=== PATIENT | male | born 1980 | race Caucasian/White ===

== ENCOUNTER 2016-11-05 21:33 | Emergency (ER) | payer MEDICAID ==
[2016-11-06 00:22] LABS: BASOPHIL % 0.4 % (0-2); PLATELET COUNT 284 x10^3mcL (130-400); RED CELL DISTRIBUTION WIDTH 13.2 % (11.5-14.5)
[2016-11-06 00:38] LABS: CALCIUM 8.8 mg/dL (8.5-10.1); CARBON DIOXIDE 25.3 mmol/L (21-32); CHLORIDE SERUM 108 mmol/L (98-107); GFR1 > 60 mL/min; GLUCOSE SERUM 89 mg/dL (74-106); POTASSIUM SERUM 3.6 mmol/L (3.5-5.1); SODIUM SERUM 142 mmol/L (136-145)
[2016-11-06 00:42] LABS: ALBUMIN 4.1 g/dL (3.4-5.0); ALKALINE PHOSPHATASE 100 U/L (46-116); ALT/SGPT 40 U/L (16-63); AST/SGOT 19 U/L (15-37); BILIRUBIN TOTAL 0.5 mg/dL (0.20-1.00); MAGNESIUM 2.4 mg/dL (1.8-2.4); TOTAL PROTEIN, SERUM 7.9 g/dL (6.4-8.2)
[2016-11-06 01:24] VITALS: BP 111/65
== END 2016-11-06 01:24 | disposition home or self-care (01) ==
LOC: ED 21:33
PROVIDERS: Emergency Medicine
DX: M54.6 Pain in thoracic spine (principal); F99 Mental disorder, not otherwise specified; Z88.0 Allergy status to penicillin
CPT/HCPCS: 36415; J1170; J1885; Q0162

== ENCOUNTER 2017-10-17 13:38 | Emergency (ER) | payer MEDICAID ==
[~2017-10-17] VITALS: Ht 165.1 cm; Wt 78.9 kg
[2017-10-17 13:41] VITALS: Ht 165.1 cm; Wt 78.9 kg
[2017-10-17 15:26] LABS: BASOPHIL % 0.4 % (0-2); PLATELET COUNT 250 x10^3mcL (130-400); RED CELL DISTRIBUTION WIDTH 13.6 % (11.5-14.5)
[2017-10-17 15:30] LABS: CALCIUM 8.3 mg/dL (8.5-10.1); CARBON DIOXIDE 25.8 mmol/L (21-32); CHLORIDE SERUM 108 mmol/L (98-107); CREATININE SERUM 0.8 mg/dL (0.7-1.3); GFR1 > 60 mL/min; GLUCOSE SERUM 98 mg/dL (74-106); POTASSIUM SERUM 3.6 mmol/L (3.5-5.1); SODIUM SERUM 143 mmol/L (136-145)
[2017-10-17 15:45] LABS: ALBUMIN 3.7 g/dL (3.4-5.0); ALKALINE PHOSPHATASE 85 U/L (46-116); ALT/SGPT 36 U/L (16-63); AST/SGOT 20 U/L (15-37); BILIRUBIN TOTAL 0.61 mg/dL (0.20-1.00); LIPASE 150 IU/L (73-393); TOTAL PROTEIN, SERUM 7.2 g/dL (6.4-8.2)
[2017-10-17 15:56] VITALS: BP 111/70
== END 2017-10-17 15:56 | disposition home or self-care (01) ==
LOC: ED 13:38
PROVIDERS: Emergency Medicine
DX: K21.9 Gastro-esophageal reflux disease without esophagitis (principal); Z88.0 Allergy status to penicillin
CPT/HCPCS: 36415; J3490

== ENCOUNTER 2018-02-08 02:50 | Emergency (ER) | payer MEDICAID ==
[~2018-02-08] VITALS: Ht 160 cm; Wt 76.2 kg
[2018-02-08 02:57] VITALS: Ht 160 cm; Wt 76.2 kg
[2018-02-08 04:05] VITALS: BP 110/77
== END 2018-02-08 04:13 | disposition home or self-care (01) ==
LOC: ED 02:50
DX: J02.9 Acute pharyngitis, unspecified (principal); J20.9 Acute bronchitis, unspecified; F17.210 Nicotine dependence, cigarettes, uncomplicated; F41.9 Anxiety disorder, unspecified; Z88.0 Allergy status to penicillin; Z98.890 Other specified postprocedural states
CPT/HCPCS: J1100

== ENCOUNTER 2018-07-13 13:56 | Emergency (ER) | payer MEDICAID ==
[~2018-07-13] VITALS: Ht 160 cm; Wt 78.0 kg
[2018-07-13 14:21] VITALS: Ht 160 cm; Wt 78.0 kg
[2018-07-13 15:53] LABS: BASOPHIL % 0.4 % (0-2); PLATELET COUNT 273 x10^3mcL (130-400); RED CELL DISTRIBUTION WIDTH 13.5 % (11.5-14.5)
[2018-07-13 15:59] LABS: CALCIUM 8.9 mg/dL (8.5-10.1); CARBON DIOXIDE 27.6 mmol/L (21-32); CHLORIDE SERUM 106 mmol/L (98-107); CREATININE SERUM 0.8 mg/dL (0.7-1.3); GFR1 > 60 mL/min; GLUCOSE SERUM 88 mg/dL (74-106); POTASSIUM SERUM 4.2 mmol/L (3.5-5.1); SODIUM SERUM 139 mmol/L (136-145)
[2018-07-13 16:06] LABS: ALBUMIN 3.7 g/dL (3.4-5.0); ALKALINE PHOSPHATASE 103 U/L (46-116); ALT/SGPT 54 U/L (16-63); AST/SGOT 28 U/L (15-37); BILIRUBIN TOTAL 0.6 mg/dL (0.20-1.00); LIPASE 154 IU/L (73-393); TOTAL PROTEIN, SERUM 7.7 g/dL (6.4-8.2)
[2018-07-13 19:20] VITALS: BP 126/75
== END 2018-07-13 19:20 | disposition home or self-care (01) ==
LOC: ED 13:56
PROVIDERS: Emergency Medicine
DX: R10.13 Epigastric pain (principal); R11.10 Vomiting, unspecified; R19.7 Diarrhea, unspecified; R91.8 Other nonspecific abnormal finding of lung field; F41.9 Anxiety disorder, unspecified; Z98.890 Other specified postprocedural states; Z88.0 Allergy status to penicillin
CPT/HCPCS: 36415; Q0092

== ENCOUNTER 2019-03-25 03:22 | Emergency (ER) | payer MEDICAID ==
[~2019-03-25] VITALS: Ht 167.6 cm; Wt 74.4 kg
[2019-03-25 03:42] VITALS: BP 116/72; Ht 167.6 cm; Wt 74.4 kg
== END 2019-03-25 05:25 | disposition home or self-care (01) ==
LOC: ED 03:22
DX: R10.13 Epigastric pain (principal); F41.9 Anxiety disorder, unspecified; Z88.0 Allergy status to penicillin
CPT/HCPCS: J1885

== ENCOUNTER 2019-05-24 22:36 | Emergency (ER) | payer MEDICAID ==
[~2019-05-24] VITALS: Ht 162.6 cm; Wt 81.2 kg
[2019-05-24 23:26] VITALS: Ht 162.6 cm; Wt 81.2 kg
[2019-05-25 02:55] VITALS: BP 108/76
== END 2019-05-25 02:55 | disposition home or self-care (01) ==
LOC: ED 22:36
DX: G44.209 Tension-type headache, unspecified, not intractable (principal); F17.210 Nicotine dependence, cigarettes, uncomplicated; H53.8 Other visual disturbances; Z88.0 Allergy status to penicillin; Z98.890 Other specified postprocedural states
CPT/HCPCS: 99406; J1885